=== PATIENT | female | born 1990 | race Caucasian/White ===

== ENCOUNTER 2017-10-01 16:16 | Emergency (ER) | payer OTHER, MEDICAID ==
[2017-10-01 18:12] LABS: ADD UMIC YES; UR ASCORBIC ACID NEGATIVE (NEGATIVE); UR BILIRUBIN (Dip) NEGATIVE (NEGATIVE); UR BLOOD (Dip) 2+ mg/dL (NEGATIVE); UR CLARITY CLOUDY (CLEAR); UR COLOR YELLOW (YELLOW); UR GLUCOSE (Dip) NEGATIVE (NEGATIVE); UR KETONES (Dip) NEGATIVE (NEGATIVE); UR LEUKOCYTE ESTERASE (Dip) 3+ Leu/ul (NEGATIVE); UR NITRITE (Dip) NEGATIVE (NEGATIVE); UR RBC 68 /HPF (0-5); UR SPECIFIC GRAVITY (Dip) 1.015 (1.003-1.030); UR SQUAMOUS EPITHELIAL CELL FEW /HPF (FEW); UR TOTAL PROTEIN (Dip) 1+ mg/dl (NEGATIVE); UR UROBILINOGEN (Dip) NEGATIVE (NEGATIVE); UR WBC > 182 /HPF (0-5)
== END 2017-10-01 19:25 | disposition home or self-care (01) ==
LOC: FTE 16:16
DX: N30.00 Acute cystitis without hematuria (principal); J45.909 Unspecified asthma, uncomplicated; F17.210 Nicotine dependence, cigarettes, uncomplicated
CPT/HCPCS: 81001; 87086; 99283

== ENCOUNTER 2017-10-23 18:37 | Emergency (ER) | payer OTHER | END 2017-10-23 21:14 | disposition home or self-care (01) | LOC: E/R 21:14 | DX: N76.0 Acute vaginitis (principal); J45.909 Unspecified asthma, uncomplicated; F17.210 Nicotine dependence, cigarettes, uncomplicated | CPT/HCPCS: 99284; Z7502 ==